=== PATIENT | male | born 1965 | race Hispanic/Latino ===

== ENCOUNTER 2018-12-20 07:33 | Day surgery (SDC) | payer OTHER ==
--- NOTE | 2018-12-19 14:44 | RAD REPORT ---
EXAM DESCRIPTION: RAD - Chest Pa And Lat (2 Views) - 12/19/2018 2:38 pm CLINICAL HISTORY: preop Chest pain. COMPARISON: No comparisons FINDINGS: The lungs are clear. The heart is moderately enlarged with changes of a prior CABG noted. No displaced fractures. IMPRESSION: Moderate cardiomegaly.
[2018-12-19 16:08] LABS: Absolute Lymphocytes (CBC) 0.8 K/uL (0.7-4.9); Absolute Monocytes 0.4 K/uL (0.1-1.3); Absolute Neutrophil 5.8 K/uL (1.8-8.0); Basophils % 0.9 % (0-1.3); Eosinophils % 1.4 % (0-4.4); Hematocrit 38.5 % (39.6-49.0); Lymphocytes % 11.3 % (15.3-44.8); MPV 11.1 fL (7.6-11.3); Monocytes % 5.7 % (3.3-12.3); Protime INR 1.06; RBC Red Blood Cell Count 4.34 M/uL (4.33-5.43)
[2018-12-19 16:28] LABS: Potassium 4.6 mmol/L (3.5-5.1)
[~2018-12-20 07:33] MED LIST: ACETYLCYST 20% 800 MG/4 ML VIAL PO SCH
[2018-12-20] MEDS ORDERED: NA CHLORIDE 0.9% 500 ML ONE (07:57)
[2018-12-20] MEDS ORDERED: MIDAZOLAM HCL 2 MG/2 ML INJ ONE (09:26)
[2018-12-20] MEDS ORDERED: FENTANYL CITR 100 MCG/2 ML ONE (09:26)
[2018-12-20] MEDS ORDERED: HEPA 1000U/500MLS 1,000 UNIT/500 ML BAG IV ONE (09:34)
--- NOTE | 2018-12-20 20:59 | OP ---
Surgeon: Nathan Dubon MD Respiratory Therapy Manager: Andrea León. Total conscious sedation was 30 minutes. Admitted to my service as an outpatient on 12/20/2018. History Of Present Illness: Mr. Mendez is a 53-year-old, status post CABG x3 in the past. He is a patient of Dr. Yeung and Dr. Grayson and has been having some cardiac symptoms, had a positive stress test. He is known to have an ejection fraction in the 30% to 35% range. He was admitted as an outp atient for a heart catheterization. Procedures: Left heart catheterization, selective coronary arteriogram, aortic root angiogram, and l eft internal mammary artery and saphenous vein graft angiogram. Findings: A 100% LAD, circ, and RCA tribal. He had 100% occlusion of the vein graft to the RCA and OM. Patent HOFF to the LAD with collaterals to the RCA and OM. I could not find any graft using the RCA catheter. Aortic root injection showed normal aortic root with what appeared to be occlusion of both grafts to the RCA and OM. The HOFF was patent. A 6-Danish sheath was used. There were no com plications. Blood Loss: 5 cc. Final Diagnosis: Severe coronary artery disease, medical therapy. KARLEE/CANDE Voice ID: [id number] Report ID: [id number]
== END 2018-12-20 12:25 | disposition home health service (06) ==
LOC: CCL 07:33
PROC: B202YZZ Plain Radiography of Single Coronary Artery Bypass Graft using Other Contrast (ICD-10-PCS; principal; 2018-12-20)
PROC: B300YZZ Plain Radiography of Thoracic Aorta using Other Contrast (ICD-10-PCS; 2018-12-20)
DX: I25.10 Atherosclerotic heart disease of native coronary artery without angina pectoris (principal); I25.810 Atherosclerosis of coronary artery bypass graft(s) without angina pectoris; I25.82 Chronic total occlusion of coronary artery; I10 Essential (primary) hypertension; E78.2 Mixed hyperlipidemia; Z87.891 Personal history of nicotine dependence
CPT/HCPCS: 36415; 71046; 80048; 82962; 85025; 85610; 85730; 93454; 93567; C1760; C1893; J2250; J3010

== ENCOUNTER 2021-10-24 09:54 | Emergency (ER) | payer BC, OTHER ==
--- NOTE | 2021-10-24 10:47 | RAD REPORT ---
EXAM DESCRIPTION: CT - Head Brain Wo Cont - 10/24/2021 10:18 am CLINICAL HISTORY: Dizziness COMPARISON: None. TECHNIQUE: Computed axial tomography of the head was obtained. IV contrast was not requested. All CT scans are performed using dose optimization technique as appropriate and may include automated exposure control or mA/KV adjustment according to patient size. FINDINGS: An intracranial bleed is not seen . The ventricles are normal in caliber. Basal ganglia calcifications. No extra-axial fluid collection is noted. Fluid within the sinuses/ mastoids is not seen. Mild ethmoid sinusitis IMPRESSION: No acute intracranial abnormality is seen. If patient's symptoms persist MRI of the bra in would be recommended.
--- NOTE | 2021-10-24 11:39 | RAD REPORT ---
EXAM DESCRIPTION: [place]itus Single View10/24/2021 11:16 am CLINICAL HISTORY: Dizziness COMPARISON: 2019 FINDINGS: The lungs appear clear of acute infiltrate. The heart is mildly to moderately enlarged Postsurgical changes involve the chest. IMPRESSION: No acute abnormalities displayed
[2021-10-24 11:52] LABS: Absolute Lymphocytes (CBC) 0.4 K/uL (0.7-4.9); Basophils % 0.7 % (0-1.3); MPV 9.4 fL (7.6-11.3)
[2021-10-24 12:02] LABS: Protime INR 1.12
[2021-10-24 12:13] LABS: Albumin 3.2 g/dL (3.4-5.0); Bilirubin Direct 0.1 mg/dL (0-0.2); Bilirubin Total 0.4 mg/dL (0.2-1.0); Magnesium 2.2 mg/dL (1.8-2.4); Potassium 4.3 mmol/L (3.5-5.1); Protein, Total 6.7 g/dL (6.4-8.2); Troponin (Emerg Dept Use Only) 0.03 ng/mL (0.0-0.045)
--- NOTE | 2021-10-24 12:59 | EDPHYS ---
Physician Documentation [facility] Name: Osiel Mendez Jr Age: 56 yrs Sex: Male : 1965 Arrival Date: 10/24/2021 Time: 09:56 Bed 3 Private MD: ED Physician Pascual Albert HPI: 10/24 10:01 This 56 yrs old Male presents to ER via EMS with complaints of Low Blood Sugar.cp 10:01 The patient or guardian reports hypoglycemia, dizziness that was potentially cp precipitated by no particular event, Treatment prior to arrival includes: ingestion of sugary substance, glucose tablets. Onset: The symptoms/episode began/occurred this morning. 10:01 Current symptoms: In the emergency department the patient's symptoms have improved, cp moderately. 10:01 Patient reports he was driving when he suddenly became lightheaded and felt like he was cp going to pass out. Patient reports blood sugar was checked and was 47. Patient reports completing peritoneal dialysis this morning. 10:01 Associated signs and symptoms: Pertinent negatives: vomiting, diarrhea, chest pain, cp abdominal pain. Historical: - Allergies: 09:59 No Known Allergies; ss - PMHx: 09:59 Peritoneal Dialysis; Diabetes mellitus; ss - PSHx: 09:59 CABG; ss ROS: 10:05 Constitutional: Negative for body aches, chills, fever, poor PO intake. cp 10:05 Eyes: Negative for injury, pain, redness, and discharge. cp 10:05 ENT: Negative for ear pain, sore throat, difficulty swallowing, difficulty handling cp secretions. 10:05 Cardiovascular: Negative for chest pain, palpitations. 10:05 Respiratory: Negative for cough, shortness of breath, wheezing. 10:05 Abdomen/GI: Negative for abdominal pain, nausea, vomiting, and diarrhea. 10:05 Neuro: Negative for altered mental status, headache, loss of consciousness, syncope. 10:05 All other systems are negative. Exam: 10:10 Constitutional: The patient appears in no acute distress, alert, awake, cp non-diaphoretic, non-toxic, well developed, well nourished. 10:10 Head/Face: Normocephalic, atraumatic. cp 10:10 Eyes: Periorbital structures: appear normal, Pupils: equal, round, and reactive to light and accomodation, Extraocular movements: intact throughout, Conjunctiva: normal, no exudate, no injection, Sclera: no appreciated abnormality, Lids and lashes: appear normal, bilaterally. 10:10 ENT: External ear(s): are unremarkable, Nose: is normal, Mouth: Lips: moist, Oral mucosa: moist, Posterior pharynx: Airway: no evidence of obstruction, patent. 10:10 Neck: ROM/movement: is normal, is supple, without pain, no range of motions limitations. 10:10 Chest/axilla: Inspection: normal, Palpation: is normal, no crepitus, no tenderness. 10:10 Cardiovascular: Rate: normal, Rhythm: regular, Edema: is not appreciated, JVD: is not appreciated. 10:10 Respiratory: the patient does not display signs of respiratory distress, Respirations: normal, no use of accessory muscles, no retractions, labored breathing, is not present, Breath sounds: are clear throughout, no decreased breath sounds. 10:10 Abdomen/GI: Inspection: peritoneal catheter noted right side of abdomen, Bowel sounds: active, all quadrants, Palpation: abdomen is soft and non-tender, in all quadrants. 10:10 Back: pain, is absent, ROM is normal. 10:10 Neuro: Orientation: to person, place \T\ time. Mentation: is normal, Motor: moves all fours, strength is normal, Sensation: is normal. 11:50 ECG was reviewed by the Attending Physician. cp Vital Signs: 10:11 BP 130 / 68; Pulse 63; Resp 16; Temp 97.6; Pulse Ox 100% ; Weight 99.79 kg; Height 5 ss ft. 8 in. (172.72 cm); Pain 0/10; 14:05 BP 125 / 62 Sitting; Pulse 71; Resp 18; Pulse Ox 100% ; kd3 14:05 BP 155 / 73 Supine; Pulse 61; Resp 14; Pulse Ox 100% ; kd3 14:05 BP 118 / 64 Standing; Pulse 70; Resp 14; Pulse Ox 100% ; kd3 10:11 Body Mass Index 33.45 (99.79 kg, 172.72 cm) ss MDM: 10:06 Patient medically screened. cp 10:30 Differential diagnosis: hypoglycemic episode, dehydration, volume depletion, cp electrolyte abnormality, CVA. 12:58 Data reviewed: vital signs, nurses notes, lab test result(s), EKG, radiologic studies, cp CT scan, plain films. 12:58 Test interpretation: by ED physician or midlevel provider: ECG, plain radiologic cp studies. Counseling: I had a detailed discussion with the patient and/or guardian regarding: the historical points, exam findings, and any diagnostic results supporting the discharge/admit diagnosis, lab results, radiology results, to return to the emergency department if symptoms worsen or persist or if there are any questions or concerns that arise at home. Response to treatment: the patient's symptoms have markedly improved after treatment. ED course: VSS. Patient reports symptoms markedly improved. Will discharge to home for continued monitoring. 10/24 10:05 Order name: Basic Metabolic Panel 10/24 10:05 Order name: CBC with Diff; Complete Time: 14:10 10/24 12:27 Interpretation: Normal except: RBC 3.70; HGB 11.6; HCT 35.0; MCV 94.6; PLT 125; QUINCY% cp 89.3; LYM% 5.0; NEUT A 8.1; LYMA 0.4. 10/24 10:05 Order name: LFT's; Complete Time: 12:27 10/24 12:27 Interpretation: Normal except: ALK 132; ALB 3.2; A/G 0.9. 10/24 10:05 Order name: Magnesium; Complete Time: 12:27 10/24 10:05 Order name: NT PRO-BNP; Complete Time: 12:27 10/24 10:05 Order name: PT-INR; Complete Time: 12:27 10/24 10:05 Order name: Troponin (emerg Dept Use Only); Complete Time: 12:27 10/24 10:05 Order name: XRAY Chest (1 view); Complete Time: 12:27 10/24 12:28 Interpretation: Report review. 10/24 10:05 Order name: CT Head Brain wo Cont; Complete Time: 11:05 10/24 10:05 Order name: Basic Metabolic Panel; Complete Time: 12:27 EDMS 10/24 12:27 Interpretation: Normal except: BUN 86; CRE 5.22; GFR 12. cp 10/24 10:21 Order name: Glucose, Ancillary Testing; Complete Time: 11:05 EDMS 10/24 11:05 Interpretation: Abnormal: GLUC,ANCIL 153. 10/24 13:10 Order name: Glucose, Ancillary Testing; Complete Time: 14:10 EDMS 10/24 13:36 Order name: Glucose, Ancillary Testing; Complete Time: 14:10 EDMS 10/24 13:42 Order name: CBC Smear Scan; Complete Time: 14:10 EDMS 10/24 10:05 Order name: EKG; Complete Time: 10:06 10/24 10:05 Order name: Cardiac monitoring; Complete Time: 11:10 10/24 10:05 Order name: EKG - Nurse/Tech; Complete Time: 11:48 10/24 10:05 Order name: IV Saline Lock; Complete Time: 11:49 10/24 10:05 Order name: Labs collected and sent; Complete Time: 12:04 10/24 10:05 Order name: O2 Per Protocol; Complete Time: 11:10 10/24 10:05 Order name: O2 Sat Monitoring; Complete Time: 11:10 10/24 10:05 Order name: Accucheck Blood Glucose; Complete Time: 11:10 10/24 12:28 Order name: Orthostatics; Complete Time: 14:03 10/24 12:34 Order name: Accucheck Blood Glucose; Complete Time: 13:38 10/24 12:59 Order name: Diet Renal; Complete Time: 13:00 cp EC:50 Rate is 57 beats/min. Rhythm is regular. MI interval is normal. QRS interval is cp prolonged at 116 msec. QT interval is prolonged. Interpreted by me. Reviewed by me. Administered Medications: 13:37 Drug: D50W 25 ml Route: IVP; Site: right antecubital; kd3 Disposition: 17:21 Co-signature as Attending Physician, Pascual Albert MD I agree with the assessment and kdr plan of care. Disposition Summary: 10/24/21 12:59 Discharge Ordered Location: Home cp Problem: new cp Symptoms: have improved cp Condition: Stable cp Diagnosis - Diabetes mellitus due to underlying condition with hypoglycemia cp Followup: cp - With: Private Physician - When: 2 - 3 days - Reason: Worsening of condition Discharge Instructions: - Discharge Summary Sheet kd3 Forms: - Medication Reconciliation Form cp - Thank You Letter cp - Antibiotic Education cp - Prescription Opioid Use cp - Work release form kd3 Signatures: Dispatcher [employer] EDVA Pascual Albert MD MD [facility] Keiry Zuluaga RN RN ss Linus Parker PA PA Luciana Minor RN RN kd3 Corrections: (The following items were deleted from the chart) 10/25 02:10/24 10:01 The patient or guardian reports hypoglycemia, dizziness that was cp potentially precipitated by no particular event, Treatment prior to arrival includes: ingestion of sugary substance, glucose tablets, cp 10/25 02:10/24 10:01 The patient or guardian reports hypoglycemia, dizziness that was cp potentially precipitated by not eating this morning, Treatment prior to arrival includes: ingestion of sugary substance, glucose tablets, cp 10/25 02:28 10/24 10:01 Patient reports he was driving when he suddenly became lightheaded and felt cp like he was going to pass out. Patient reports blood sugar was checked and was 47 . cp
--- NOTE | 2021-10-24 12:59 | ER ---
Nurse's Notes [facility] Name: Osiel Mendez Jr Age: 56 yrs Sex: Male : 1965 Arrival Date: 10/24/2021 Time: 09:56 Bed 3 Private MD: Diagnosis: Diabetes mellitus due to underlying condition with hypoglycemia Presentation: 10/24 09:56 Chief complaint: Patient states: EMS states, "This morning he took his insulin shot, ss ate breakfast. On the way to work he checked his sugar and it was 47. When he got to work he ate some sugar packets. Coworker found him sitting in his truck. Patient was feeling weak and dizzy. Repeat bgl was in the 60's. When we got there his blood sugar was in the 80's. Still c/o dizziness/weakness." 18 gauge inserted to R AC. EKG obtained en route to ED which showed an abnormal EKG. Denies CP at this time. Coronavirus screen: Client denies travel out of the [place] in the last 14 days. Ebola Screen: Patient denies exposure to infectious person. Patient denies travel to an Ebola-affected area in the 21 days before illness onset. Initial Sepsis Screen: Does the patient meet any 2 criteria? No. Patient's initial sepsis screen is negative. Does the patient have a suspected source of infection? No. Patient's initial sepsis screen is negative. Risk Assessment: Do you want to hurt yourself or someone else? Patient reports no desire to harm self or others. Onset of symptoms was October 24, 2021. 09:56 Method Of Arrival: EMS: [facility] 09:56 Acuity: MINI 2 ss Historical: - Allergies: 09:59 No Known Allergies; ss - PMHx: 09:59 Peritoneal Dialysis; Diabetes mellitus; ss - PSHx: 09:59 CABG; ss Screenin:00 Abuse screen: Denies threats or abuse. Denies injuries from another. Nutritional bp screening: No deficits noted. Tuberculosis screening: No symptoms or risk factors identified. Fall Risk None identified. Assessment: 10:00 General: SEE TRIAGE NOTE. bp Vital Signs: 10:11 BP 130 / 68; Pulse 63; Resp 16; Temp 97.6; Pulse Ox 100% ; Weight 99.79 kg; Height 5 ss ft. 8 in. (172.72 cm); Pain 0/10; 14:05 BP 125 / 62 Sitting; Pulse 71; Resp 18; Pulse Ox 100% ; kd3 14:05 BP 155 / 73 Supine; Pulse 61; Resp 14; Pulse Ox 100% ; kd3 14:05 BP 118 / 64 Standing; Pulse 70; Resp 14; Pulse Ox 100% ; kd3 10:11 Body Mass Index 33.45 (99.79 kg, 172.72 cm) ED Course: 09:56 Patient arrived in ED. em1 09:59 Triage completed. ss 09:59 Arm band placed on right wrist. ss 10:00 Patient has correct armband on for positive identification. Bed in low position. Call bp light in reach. Side rails up X2. 10:01 Linus Parker PA is PHCP. cp 10:01 Pascual Albert MD is Attending Physician. cp 10:18 CT Head Brain wo Cont In Process Unspecified. EDMS 11:16 XRAY Chest (1 view) In Process Unspecified. EDMS 12:04 Bon Harris, RN is Primary Nurse. bp 14:28 No provider procedures requiring assistance completed. IV discontinued, intact, jl7 bleeding controlled, No redness/swelling at site. Pressure dressing applied. Administered Medications: 13:37 Drug: D50W 25 ml Route: IVP; Site: right antecubital; kd3 Outcome: 12:59 Discharge ordered by MD. cp 14:28 Discharged to home ambulatory, with family. jl7 14:28 Condition: stable 14:28 Discharge instructions given to patient, family, Instructed on discharge instructions, follow up and referral plans. Demonstrated understanding of instructions, follow-up care. 14:29 Patient left the ED. jl7 Signatures: Dispatcher [employer] EDMS Shane López em1 Keiry Zuluaga RN RN ss Linus Parker PA PA cp Leal, Jahala, RN RN jl7 Bon Harris RN RN bp Doucette, Kyli, RN RN kd3
[2021-10-24] MEDS ORDERED: D50W 50 ML IV ONE (13:29)
[2021-10-24 13:42] LABS: Blood Morphology Comment NOT SEEN (NOT SEEN); Platelet Estimate DECR; White Blood Cell Scan OK (OK)
[2021-10-24 14:45] VITALS: TEMP 97.6; O2SAT 100
[2021-10-24 14:47] VITALS: BP 118/64
== END 2021-10-24 14:29 | disposition home or self-care (01) ==
LOC: ER 09:54
DX: E11.649 Type 2 diabetes mellitus with hypoglycemia without coma (principal); Z99.2 Dependence on renal dialysis
CPT/HCPCS: 36415; 70450; 71045; 80048; 80076; 82947; 83735; 83880; 84484; 85025; 85610; 93005; 96374; 99284

== ENCOUNTER 2022-05-01 08:49 | Day surgery (SDC) | payer BC ==
[2022-04-29 15:53] LABS: Absolute Lymphocytes (CBC) 0.7 K/uL (0.7-4.9); Hematocrit 32.5 % (39.6-49.0); Lymphocytes % 10.4 % (15.3-44.8); MPV 9.6 fL (7.6-11.3)
[2022-04-29 15:56] LABS: Protime INR 1.12
[2022-04-29 16:15] LABS: Potassium 4.6 mmol/L (3.5-5.1)
--- NOTE | 2022-04-30 13:47 | EKG ---
Test Date: 2022-04-29 Test Time: 14:52:32 Therapeutic Program Worker: EVANS MEASUREMENT RESULTS: Intervals: Rate: 66 NC: 176 QRSD: 110 QT: 442 QTc: 463 Dougherty: P: 64 NC: 176 QRS: 22 T: 101 INTERPRETIVE STATEMENTS: Normal sinus rhythm T wave abnormality, consider lateral ischemia Prolonged QT Abnormal ECG Compared to ECG 10/24/2021 11:43:43 T-wave abnormality now present Sinus bradycardia no longer present Left bundle-branch block no longer present ST (T wave) deviation no longer present Possible ischemia still present Electronically Signed On 04-30-22 13:45:22 CDT by Sesar Bezn
[2022-05-01] MEDS ORDERED: NA CHLORIDE 0.9% 500 ML ONE (09:14)
[2022-05-01] MEDS: CEFAZOLIN SODIUM 1 GM/VIAL ONE ×2 (09:54→11:05)
[2022-05-01] MEDS: BUPIVACAINE 0.25% PF 10 ML VIAL ONE ×2 (09:55→11:49)
[2022-05-01] MEDS ORDERED: MIDAZOLAM HCL 2 MG/2 ML INJ ONE (10:02)
[2022-05-01] MEDS ORDERED: ROCURONIUM 50 MG/5 ML VIAL IV ONE ×2 (10:02→12:19)
[2022-05-01] MEDS ORDERED: propofoL 200 MG/20 ML VIAL IV ONE (10:02)
[2022-05-01] MEDS ORDERED: NEOSTIGMINE 1 MG/ML -10 ML VIAL ONE (10:03)
[2022-05-01] MEDS ORDERED: ONDANSETRON 4 MG/2 ML VIAL ONE (10:03)
[2022-05-01] MEDS ORDERED: GLYCOPYRROLATE 0.2 MG/ML SYR ONE (10:04)
[2022-05-01] MEDS ORDERED: FENTANYL CITR 100 MCG/2 ML ONE (10:05)
[2022-05-01] MEDS ORDERED: LIDOCAINE 1% MPF 5 ML VIAL ONE (10:05)
[2022-05-01] MEDS ORDERED: BUPIVACA 0.5%/EPI 0.0005%/PF 30 ML VIAL ONE (10:06)
[2022-05-01] MEDS ORDERED: NS 0.9% VIAL 0 ML ONE (10:06)
[2022-05-01] MEDS ORDERED: HEPARIN 5000 UNIT/ML 1 ML VIAL ONE (10:08)
[2022-05-01] MEDS ORDERED: NS 0.9% VIAL 10 ML ONE (10:08)
[2022-05-01] MEDS ORDERED: NA CHLORIDE 0.9% 50 ML ONE (10:16)
[2022-05-01] MEDS ORDERED: EPHEDRINE SULF 50 MG/ML VIAL ONE (12:15)
[2022-05-01] MEDS: HEPARIN 5000 UNIT/ML 1 ML VIAL ONE ×2 (12:20→12:56)
[2022-05-01] MEDS: HEPARIN 500 UNIT/5 ML SYR IV ONE ×2 (12:40→13:00)
--- NOTE | 2022-05-01 12:53 | P.OP ---
Preoperative diagnosis: End Stage Renal Disease / PD catheter dysfunction Postoperative diagnosis: End Stage Renal Disease / PD catheter dysfunction Primary procedure: Placement of RIGHT internal jugular Hemosplit HD catheter Secondary procedure: ultrasound and flouroscopy used Other procedure(s): Laparoscopic replacement of double cuffed PD cath, removal PD cath Anesthesia: GETA Estimated blood loss: <5cc Specimen: none Findings: catheter positions optimal, HD and PD Complications: None Implants: 19cm hemosplit catheter, lipscomb double cuffed HD cath Transferred to: Recovery Room Condition: Good
[2022-05-01] MEDS ORDERED: SUGAMMADEX SODIUM 200 MG/2 ML VIAL IV ONE (13:04)
--- NOTE | 2022-05-01 13:52 | RAD REPORT ---
EXAM DESCRIPTION: RAD - Chest Single View - 05/01/2022 1:28 pm CLINICAL HISTORY: S/P HD CATH PLACEMENT Chest pain. COMPARISON: Chest Single View dated 10/24/2021; Chest Pa And Lat (2 Views) dated 12/19/2018 FINDINGS: Portable technique limits examination quality. Right-sided venous catheter is in place with its tip in the SVC. No postprocedure pneumothorax.
[2022-05-01 14:29] VITALS: O2SAT 100
[2022-05-01 15:09] VITALS: BP 138/65
--- NOTE | 2022-05-01 23:51 | OP ---
Date of Procedure: 05/01/2022 Surgeon: Khalif Barksdale MD, Preoperative Diagnosis: End-stage renal disease/peritoneal dialysis catheter dysfunction or attentio n to peritoneal dialysis catheter. Postoperative Diagnosis: End-stage renal disease/peritoneal dialysis catheter dysfunction or attenti on to peritoneal dialysis catheter. Procedure Performed: 1.Placement of right internal jugular HemoSplit 19 cm catheter and right internal jugular vein using ultrasound and fluoroscopy and microintroducer set. 2.Laparoscopic replacement of double cuffed merit standard peritoneal dialysis catheter in the left abdomen. 3.Removal of previously placed peritoneal dialysis catheter. Complications: None. Specimen: None. Anesthesia: General endotracheal. Estimated Blood Loss: Less than 5 cc. Findings: Catheters were placed in optimal position using imaging techniques. 1.HemoSplit catheter was positioned using fluoroscopy and ultrasound guidance. It flushed quite eas ervin nonpulsatile blood. 2.Peritoneal dialysis catheter placed in left lower abdomen removed 850 cc of approximately 900 cc g iven. Complications: None. Implants: 1.19 cm HemoSplit catheter. 2.Merit double cuffed standard peritoneal dialysis catheter. The patient transferred to [facility] in good condition. Procedure In Detail: After informed consent was obtained, patient was brought to the operating room, prepped and draped in the usual sterile fashion. After adequate anesthesia was achieved, the patien t placed in steep Trendelenburg position. Using ultrasound guidance, I cannulated the right internal jugular vein on the first attempt using a microintroducer set. Microwire was advanced at this point , position was verified with fluoroscopy at this point and found to be in optimal position. At this point, I made a small shoaib incision overlying the insertion site and then placed a microintroducer sh eath at this point, microwire was removed. 19 cm standard catheter wire was advanced. Fluoroscopy c onfirmed position once again. The microintroducer sheath was removed at this point, and the standard wire left in place. I then created a tunnel tract on the chest wall using a 19 cm HemoSplit cathete r attached to the tunneling device and I then passed it through after appropriately anesthetizing tra ct through the insertion site. At this point, I performed sequential dilatation while the patient re mained in steep Trendelenburg position over a wire using Seldinger technique using double dilators. After the dilation was complete, I placed the introducer sheath, removed the wire. Standard catheter 19 cm was advanced at this point. Position once again confirmed with fluoroscopy. After the cathet er was placed appropriately, I both zeyad back and flushed the catheter quite easily. Dark red nonpul satile blood was returned throughout the procedure and the catheter flushed quite easily. It was then super flushed at this point, the catheter placed. The patient taken out of Trendelenburg position. All skin incisions copiously irrigated. The catheter was secured to the chest wall using the same set 2-0 nylon suture and the insertion site was closed using same set 3-0 nylon suture with interrupted fashion. Sterile dressing placed over top. The patient tolerated the procedure well wi thout evidence of complication up to this point. I then turned my attention to the peritoneal dialys is catheter. I had stenciled the patient's abdomen using a [facility] standard double cuffed peritoneal d ialysis catheter based on a left abdominal insertion site previously. The patient had a right perito cong dialysis catheter already in place with the cuff exposed, that was the reason for removal of janice t same set peritoneal dialysis catheter even though it remained functional. At this point, I made a left upper quadrant stab incision through the previous incision. A 5 mm 30-degree optical trocar was placed under direct visualization without complication. Insufflation obtained to 15 mmHg, found to have no injury to vital structures upon entry into the abdomen. At this point, using the prestencile d jack, I made an incision overlying the rectus sheath incision, and using the introducer sheath, I p laced at a 4-5 degree angle placed at the right pelvis. I then removed the inner cannula of this and performed sequential dilatation of the introducer sheath. I then placed in the Merit cat heter with a medial twist to allow for curling of the catheter into the pelvis toward the midline. A t this point, the catheter was functional with fluid emanating from the endpoint. The introducer she ath was removed at this point, I then placed the catheter on the tunneling device. After appropriate ly anesthetizing the tract, I made a small shoaib incision at the exit site and passed the catheter thr ough this tunneling site with ease. At this point, I hooked the cap on the end of this and infused 9 00 cc of sterile saline into the abdomen and it flushed in quite easily. An 850 cc returned under ge ntle gravity without any specific maneuvers. At this point, the abdomen was re-insufflated and the c atheter was found to be in good position and the insertion site was cleansed and closed using 4-0 Mon ocryl in a running fashion. I then turned my attention to the right peritoneal dialysis catheter wit h cuff exposed. I have made a cutdown over the previously placed rectus sheath insertion site down t hrough the fascia and the rectus sheath cuff was found to be intact. I then removed this after using electrocautery and gentle dissection, the catheter was cut, removed, and the tract was irrigated and closed with a Danilo suture passer with 0 Vicryl in interrupted fashion with good approxima tion tissues. The area was verified with laparoscopy throughout the procedure. I then closed the sk in after appropriately irrigating it once again with an interrupted mattress suture of 2-0 nylon and a sterile dressing placed over top. All remaining skin incisions were then copiously irrigated out. The abdomen was completely desufflated under direct visualization without evidence of complication. All skin incisions being copiously irrigated, were then closed using a 4-0 Monocryl interrupted fash ion. Dermabond placed over top. The patient tolerated the procedure without evidence of complicatio n, transferred to PACU in good condition. All counts correct at the end of the case. BILL/BRUNAL Voice ID: [id number] Report ID: [id number]
== END 2022-05-01 15:25 | disposition home or self-care (01) ==
LOC: OR 08:49
PROVIDERS: ATTEND Surgery
PROC: 05HM33Z Insertion of Infusion Device into Right Internal Jugular Vein, Percutaneous Approach (ICD-10-PCS; 2022-05-01)
PROC: B513ZZA Fluoroscopy of Right Jugular Veins, Guidance (ICD-10-PCS; 2022-05-01)
PROC: 0WWG43Z Revision of Infusion Device in Peritoneal Cavity, Percutaneous Endoscopic Approach (ICD-10-PCS; principal; 2022-05-01 11:45)
PROC: 0JH63XZ Insertion of Tunneled Vascular Access Device into Chest Subcutaneous Tissue and Fascia, Percutaneous Approach (ICD-10-PCS; 2022-05-01 11:45)
DX: T85.691D Other mechanical complication of intraperitoneal dialysis catheter, subsequent encounter (principal); N18.6 End stage renal disease; Z99.2 Dependence on renal dialysis; Z20.822 Contact with and (suspected) exposure to COVID-19
CPT/HCPCS: 49325; 93005; 85025; 80048; 36415; 85610; 82947 ×2; 85730; 71045; 36558; 77001; U0003; J2704; J2710; J1644 ×2; J2250; J3010; J1642; J7040; J2405; J0690; C1752

== ENCOUNTER → 2022-10-09 | Day surgery (SDC) | payer BC ==
[2022-10-07 10:28] LABS: Potassium 4.2 mmol/L (3.5-5.1)
[~2022-10-09] MED LIST changes: -ACETYLCYST 20% 800 MG/4 ML VIAL PO SCH; +BUPIVACAINE 0.25% PF 30 ML VIAL ONE; +CEFAZOLIN SODIUM 2 GM/VIAL ONE; +EPHEDRINE SULF 50 MG/ML VIAL ONE; +FENTANYL CITR 100 MCG/2 ML ONE; +GLYCOPYRROLATE 0.2 MG/ML SYR ONE; +HEPARIN 5000 UNIT/ML 1 ML VIAL ONE; +HYDROMORPHONE HCL 1 MG/ML INJ ONE; +LIDOCAINE 2% MPF 5 ML VIAL ONE; +MIDAZOLAM HCL 2 MG/2 ML INJ ONE; +NA CHLORIDE 0.9% 500 ML ONE; +NS 0.9% VIAL 10 ML ONE; +ONDANSETRON 4 MG/2 ML VIAL ONE; +SODIUM HYPOCHLORITE 0.25% 473 ML ONE; +propofoL 200 MG/20 ML VIAL IV ONE
--- NOTE | 2022-10-09 13:26 | P.OP ---
Preoperative diagnosis: Peritoneal Dialsys Catheter Dysfunction Postoperative diagnosis: Peritoneal Dialsys Catheter Dysfunction Primary procedure: Removal of Peritoneal Dialysis Catheter Anesthesia: MAC + Local Estimated blood loss: <10cc Specimen: catheter for culture, debridement Findings: small fracture / break in catheter near deep cuff Complications: None Transferred to: Recovery Room Condition: Good
[2022-10-09] MEDS: HYDROMORPHONE HCL 1 MG/ML INJ ONE ×2 (14:02→14:10)
[2022-10-09 15:31] VITALS: BP 142/72; TEMP 96.8; O2SAT 99
--- NOTE | 2022-10-09 23:48 | OP ---
Date of Procedure: 10/09/2022 Surgeon: Khalif Barksdale MD, Preoperative Diagnosis: Peritoneal dialysis catheter dysfunction. Postoperative Diagnosis: Peritoneal dialysis catheter dysfunction. Procedure: Removal of peritoneal dialysis catheter. Anesthesia: MAC plus local with 0.25% Marcaine. Estimated Blood Loss: Less than 10 cc. Specimen: Catheter for culture and debridement tissue. Findings: Small fracture/break at the catheter tip, near the deep cuff, but superficial and position ed near the skin. Complications: None. Disposition: Patient was transferred to recovery room in good condition. Procedure In Detail: After informed consent was obtained, patient was brought to the operating room and prepped and draped in the usual sterile fashion. After adequate anesthesia was achieved, I made a linear incision down overlying the deep cuff around a circumferential area of wound drainage at thi s area that was packed. I dissected down to expose the catheter. At this point, the catheter was in spected and found to have a small break in the posterior position of the cuff. I circumferentially d issected the deep cuff free from the anterior rectus sheath and removed the catheter at this point, u sing a combination of blunt and electrocautery dissection. I then grasped the fascia, elevated the a nterior rectus sheath and closed it with interrupted 0 PDS suture in a running fashion with good clos ure at this point. I then removed the catheter by palpating the digital proximal tunnel track and re moving it through the skin incision. I then took an elliptical incision of tissue at the exit site o n the left abdominal wall, cleaned down the entire area by debriding the area using combination of sh jael and blunt dissection as well as electrocautery. I then irrigated the tunnel tracts of both areas and removed the necrotic tissue. At this point, I then closed the deep dermal plane of the deep cuf f site in the periumbilical position using interrupted 3-0 Vicryl sutures and skin chester. I then p acked the tract of the catheter exit site with 0.25% Dakin solution on a quarter-inch plain packing a nd then reapproximated loosely the edge of this area using interrupted 2-0 nylon sutures and a steril e dressing placed over top. The patient tolerated the procedure without evidence of any complication and was transferred to the PACU in good condition. All counts were correct at the end of the case. TK/MODL Voice ID: [id number] Report ID: [id number]
== END | disposition home or self-care (01) ==
LOC: OR 10:24
PROVIDERS: ATTEND Surgery
PROC: 0WPG03Z Removal of Infusion Device from Peritoneal Cavity, Open Approach (ICD-10-PCS; principal; 2022-10-09 12:15)
DX: T82.41XA Breakdown (mechanical) of vascular dialysis catheter, initial encounter (principal); Z45.2 Encounter for adjustment and management of vascular access device
CPT/HCPCS: 87070; 80048; 36415; 82947 ×2; 88304 ×2; 49422; J2704; J1644 ×2; J2001; J2250; J3010; A4216; J1170 ×2; J7040; J2405; 87077; 88300

== ENCOUNTER 2025-08-28 08:12 | Day surgery (SDC) | payer BC, OTHER ==
[2025-08-27 11:43] LABS: Absolute Lymphocytes (CBC) 0.4 K/uL (0.7-4.9); Hematocrit 36.2 % (39.6-49.0); Hemoglobin 12.3 g/dL (13.6-17.9); MCH 32.2 pg (27.0-35.0); MCHC 34.0 g/dL (32.0-36.0); MCV 94.5 fL (80-100); MPV 8.4 fL (7.6-11.3); Nucleated RBC Absolute Count 0.0 (0-0); Nucleated Red Blood Cells % 0.0 % (0-0); RBC Red Blood Cell Count 3.83 M/uL (4.33-5.43); White Blood Count 4.60 thou/uL (4.3-10.9)
[2025-08-27 11:59] LABS: PT Prothrombin Time 14.7 SECONDS (10-13.0); PTT, Activated Partial Thromb 44.2 SECONDS (27.2-37.4); Protime INR 1.31
[2025-08-27 12:03] LABS: ALT/SGPT 33.0 U/L (16-61); AST/SGOT 22.0 U/L (15-37); Albumin 3.3 g/dL (3.4-5.0); Albumin/Globulin Ratio 0.8 (1.1-1.8); Alkaline Phosphatase 248.0 U/L (45-117); Anion Gap 10.1 mEq/L (5.0-15.0); BUN Blood Urea Nitrogen 26.0 mg/dL (7-18); Bilirubin Indirect, Calculated 0.5 mg/dL (0.2-0.8); Globulin 4.0 g/dL (2.3-3.5); Glucose Level 103.0 mg/dL (74-106); Potassium 4.1 mEq/L (3.5-5.1)
[2025-08-28] MEDS ORDERED: FENTANYL CITR 100 MCG/2 ML ONE (08:22)
[2025-08-28] MEDS ORDERED: LIDOCAINE 1% MPF 5 ML VIAL ONE (08:22)
[2025-08-28] MEDS: NA CHLORIDE 0.9% 500 ML ONE (09:00)
[2025-08-28 11:00] VITALS: BP 106/53; TEMP 97.2; O2SAT 99
== END 2025-08-28 11:13 | disposition home or self-care (01) ==
LOC: OR 08:12
PROVIDERS: ATTEND Internal Medicine Gastroenterology
PROC: 0DB78ZX Excision of Stomach, Pylorus, Via Natural or Artificial Opening Endoscopic, Diagnostic (ICD-10-PCS; 2025-08-28)
PROC: 0DB68ZX Excision of Stomach, Via Natural or Artificial Opening Endoscopic, Diagnostic (ICD-10-PCS; 2025-08-28)
PROC: 0DB38ZX Excision of Lower Esophagus, Via Natural or Artificial Opening Endoscopic, Diagnostic (ICD-10-PCS; principal; 2025-08-28 09:30)
DX: K74.60 Unspecified cirrhosis of liver (principal); R18.8 Other ascites; I85.00 Esophageal varices without bleeding; R10.13 Epigastric pain; K44.9 Diaphragmatic hernia without obstruction or gangrene; K29.50 Unspecified chronic gastritis without bleeding; K21.00 Gastro-esophageal reflux disease with esophagitis, without bleeding
CPT/HCPCS: 85025; 80048; 36415; 88312 ×2; 85610; 82947; 80076; 88305; 85730; 43239; J2704; J2003; J3010; J7040